=== PATIENT | female | born 1950 | race Caucasian/White ===

== ENCOUNTER → 2019-10-04 13:52 | Outpatient (CLI) | payer BC, SELFPAY ==
--- NOTE | ~2019-10-04 | DEXA_ITS ---
Bone Density Report Name: Kailee Lyn Age: 69 Sex: Female Ethnicity: White Date of : 1950 Indication: postmenopausal; screening for osteoporosis; hysterectomy; Referring Provider: PHYSICIAN NOT ON STAFF Study: Bone densitometry was performed. Exam Date: October 04, 2019 Accession number: [id number] Bone Density: Region BMD T-score Z-score Classification AP Spine (L1-L4) 0.858 -1.7 0.3 Osteopenia Femoral Neck (Left) 0.681 -1.5 0.2 Osteopenia Total Hip (Left) 0.917 -0.2 1.2 Normal Femoral Neck (Right) 0.743 -1.0 0.7 Normal Total Hip (Right) 0.893 -0.4 1.0 Normal Total Hip Mean 0.905 -0.3 1.1 Normal World Health Organization criteria for BMD impression classify patients as: Normal (T-score at or above -1.0), Osteopenia (T-score between -1.0 and -2.5), or Osteoporosis (T-score at or below -2.5). 10-year Fracture Risk(1): Major Osteoporotic Fracture 9.1% Hip Fracture 1.1% Reported Risk Factors: [place] (), Neck BMD=0.681, BMI=33.3 (1) FRAX(R) Version 3.08. Fracture probability calculated for an untreated patient. Fracture probability may be lower if the patient has received treatment. Clinical Information Provided by Patient: Has the following medical conditions: Hysterectomy Patient maximum height was 64 Menopause Age: 50 No regular weight bearing exercise Does not regularly consume dairy products Drinks caffeinated beverages Onset of menses at age 14 Number of children 4 Impression: The patient has low bone mass, based on the Total Spine T-score. The patient has an estimated ten-year risk of hip fracture of 1.1% and an estimated ten-year risk of major fracture of 9.1%, based on the WHO FRAX algorithm. Discussion: BONE DENSITY IS LOW AT ONE OR MORE SKELETAL SITES. This patient's lowest T-score is low at one or more skeletal sites. It meets the World Health Organization's (WHO) criteria for ?low bone mass? (T-score between -1.0 and -2.5). The patient's 10-year risk of fracture as calculated by FRAX is less than the threshold where pharmacological therapy is recommended by the National Osteoporosis Foundation (NOF). However, all treatment decisions require clinical judgment and consideration of individual patient factors, including patient preferences, comorbidities, previous drug use, risk factors not captured in the FRAX model (e.g., frailty, falls, vitamin D deficiency, increased bone turnover, interval significant decline in bone density) and possible under or overestimation of fracture risk by FRAX. The patient should follow a healthful lifestyle (good nutrition with adequate calcium and vitamin D, and appropriate weight-bearing exercise). Follow-Up: Consider repeating this study in 2 to 3 years to reassess this patient's status, or sooner if there is some new clinic
--- NOTE | ~2019-10-04 | MM_ITS ---
EXAMINATION: MM screening winter BI w charanjit HISTORY: Screening mammogram TECHNIQUE: Craniocaudal and mediolateral oblique 3-D tomosynthesis images were obtained and synthetic 2-D images were generated. CAD analysis was submitted and interpreted. COMPARISON: No prior mammogram is available for comparison at this institution. BREAST PARENCHYMAL COMPOSITION: There are scattered areas of fibroglandular density. FINDINGS: There is no evidence of suspicious mass, calcification, or architectural distortion to sugg est malignancy in either breast. There has been no suspicious interval change. IMPRESSION: 1. No mammographic evidence of malignancy. 2. Recommend routine screening mammography in one year. BI-RADS Category 1: Negative Reviewed, dictated and finalized at location [facility]. [facility]
== END ==
PROVIDERS: PCP Family Medicine Sports Medicine; Visit Provider Family Medicine Sports Medicine
DX: Z12.31 Encounter for screening mammogram for malignant neoplasm of breast (principal); Z13.820 Encounter for screening for osteoporosis; M85.88 Other specified disorders of bone density and structure, other site; M85.852 Other specified disorders of bone density and structure, left thigh
CPT/HCPCS: 77063; 77067; 77080

== ENCOUNTER → 2024-09-15 01:44 | Day surgery (SDC) | payer MEDICARE, SELFPAY ==
--- OUTSIDE RECORDS SUMMARY | 2024-09-15 01:47 | XMS_ITS | Clinical Summary ---
Author Organization [address] Address [address] [place] [address] Care Team Providers Care Director Of Business Operations Name Role Phone Alden Ramirez MD Primary Care Provider [phone] Allergies No known active allergies Medications olmesartan-hyd rochlorothiazi de (BENICAR HCT) 20-12.5 mg per tablet Take 1 tablet by mouth daily Active simvastatin (ZOCOR) 20 mg tablet Take 1 tablet (20 mg total) by mouth daily Active rivaroxaban (XARELTO) 20 mg tablet Take 1 tablet (20 mg total) by mouth daily with breakfast 90 tablet 2 07/16/20 24 Active sotaloL (BETAPACE) 80 mg tablet Take 1 tablet (80 mg total) by mouth 2 (two) times a day 60 tablet 2 08/23/19 25 025 Active metoprolol XL (TOPROL-XL) 50 mg extended release tablet TAKE 1 TABLET DAILY 90 tablet 3 07/21/20 24 025 Discontinued Active Problems Problem Noted Date Diagnosed Date Other thrombophilia 07/16/2024 Paroxysmal atrial fibrillation (CMS/HCC) 017 Morbid obesity with BMI of 40.0-44.9, adult 02/08 Encounters Date Type Department Care Team Description 08/23/2024 1:15 PM BATH DESIGN SALES CONSULTANT Office Visit [facility] [address] [facility] [address] [place] [address] Ld Max MD Paroxysmal atrial fibrillation (CMS/HCC) (HCC) (Primary Dx) 08/23/2024 Telephone [facility] [address] [facility] [address] [place] [phone] Ld Max MD 07/26/2024 9:15 AM BATH DESIGN SALES CONSULTANT Ancillary Procedure [facility] [address] [place] [address] [place] [phone] Atrial fibrillation, unspecified type (HCC) 07/16/2024 10:15 AM BATH DESIGN SALES CONSULTANT Office Visit [facility] [address] [place] [address] [place] [phone] Ld Max MD Paroxysmal atrial fibrillation (CMS/HCC) (HCC) (Primary Dx); Other thrombophilia (HCC); Need for lipid screening from Last 3 Months Medical History Medical History Date Comments Atrial fibrillation (CMS/HCC) (HCC) Family History Medical History Relation Name Comments Other Father 2 Alive and well; Other Mother 2 Alive and well; Relation Name Status Comments Father 1 Alive Father 2 Mother 1 Alive Mother 2 Social History Tobacco Use Types Packs/Day Years Used Date Smoking Tobacco: Former Cigarettes Q uit: 05/06/2021 Smokeless Tobacco: Never Tobacco Cessation:Counseling Given: Not Answered Alcohol Use Standard Drinks/Week Comments No 0 (1 standard drink = 0.6 oz pur e alcohol) Comments Unknown Sex and Gender Information Value Date Recorded Sex Assigned at Not on file Legal Sex Female 12:07 AM BATH DESIGN SALES CONSULTANT Gender Identity Not on file Sexual Orientation Not on file Obstetrics History Last Filed Vital Signs Vital Sign Reading Time Taken Comments Blood Pressure 104/68 08/23/2024 12:51 PM BATH DESIGN SALES CONSULTANT Pulse 79 08/23/2024 12:51 PM BATH DESIGN SALES CONSULTANT Temperature - - Respiratory Rate 12 02/25/2017 9:38 AM CDT Oxygen Saturation 95% 08/23/2024 12: 51 PM BATH DESIGN SALES CONSULTANT Inhaled Oxygen Concentration - - Weight 98.3 kg (216 lb 11.2 oz) 025 12:51 PM BATH DESIGN SALES CONSULTANT Height 162.6 cm (5' 4 ) 08/23/2024 12:5 1 PM BATH DESIGN SALES CONSULTANT Body Mass Index 37.2 08/23/2024 12:51 PM BATH DESIGN SALES CONSULTANT Plan of Treatment Health Maintenance Due Date Last Done Comments Breast Cancer Screening-Mammogram 1950 Colon Cancer Screening-Colonoscopy 1950 Depression Screening 1950 Fall Risk Assessment 1950 Hepatitis C Screening 1950 Osteoporosis Screening-Bone Density Scan 1950 DTaP/Tdap/Td Vaccine (1 - Tdap) 1962 Hepatitis B Screening 1969 Zoster Vaccine (1 of 2) 2001 Well Visit 65+ 2016 Influenza Vaccine (#1) 2024 9, 05/24/2018, 04/29/2017 Pneumococcal vaccine 65+ Completed 05/04/2019, 04/11 Procedures Procedure Name Priority Date/Time Associated Diagnosis Comments TRANSTHORACIC ECHO (TTE) COMPLETE W DOPPLER/CF WO CONTRAST Routine 07/26/2024 9:59 AM BATH DESIGN SALES CONSULTANT Atrial fibrillation, unspecified type (HCC) ELECTROCARDIOGRAM REPORT Routine 024 3:53 PM BATH DESIGN SALES CONSULTANT Paroxysmal atrial fibrillation (CMS/HCC) (HCC) POCT LIPID PANEL Routine 07/16/2024 10:0 9 AM BATH DESIGN SALES CONSULTANT Need for lipid screening from Last 3 Months Results * TRANSTHORACIC ECHO (TTE) COMPLETE W DOPPLER/CF WO CONTRAST (07/26/2024 9:59 AM BATH DESIGN SALES CONSULTANT) Anatomical Region Laterality Modality Ultrasound 07/26/2024 9:49 AM BATH DESIGN SALES CONSULTANT Narrative 07/26/2024 12:40 PM BATH DESIGN SALES CONSULTANT [facility] [address] [facility] [address] [address] [address] [facility] [address], [place] [address] P:[phone] P:[phone] Echocardiographic Report Patient Name: KAILEE CHAVES E : 1950 Study Date: 07/26/2024 9:49:58 AM Gender: F Tech: Location: [facility] Provider: LD MAX ?Height(Cm): 163 BSA: 2.11 Weight(Kg): 98.4 Heart Rate: 67 BP: 117 / 73 Quality: Good Order Provider: LD MAX ?? PROCEDURES: Echocardiographic Report: Transthoracic echocardiogram with complete 2D, M-Mode, and color Doppler examination. ?? INDICATIONS: I48.91 Unspecified atrial fibrillation. ?? MEASUREMENTS: 2D/MM ?Value ? Range ?Doppler ?Value ? Range Estimated EF ? 76 % ? MCKENNA Vmax ? 1.97 cm2 ?[ 2.00 - 4.00 ] LVIDd 2D ? 5.06 cm ? [ 3.80 - 5.20 ] ?AV Mean PG ? 6 mmHg LVIDs 2D ? 2.74 cm ? [ 2.20 - 3.50 ] ?AV Peak Fili ?1.69 m/s ?[ 1.00 - 1.70 ] LVPWd 2D ? 1.16 cm ? [ 0.60 - 0.90 ] ?AV Peak PG ? 11 mmHg IVSd 2D ?1.16 cm ? [ 0.60 - 0.90 ] ?AV VTI ? 35.67 cm LA Volume Index ?23 cc/m2 ?[ 16 - 34 ] ?LVOT Diam ?1.98 cm ? [ 1.70 - 2.10 ] LVOT Peak Fili ?1.08 m/s ?[ 0.70 - 1.10 ] LVOT VTI ? 24.61 cm MV E Peak Fili ?0.57 m/s ?[ 0.60 - 1.30 ] MV A Peak Fili ?0.78 m/s ?[ 1.00 - 1.20 ] MV Decel Time ?241 msec ?[ 104 - 258 ] Lateral E` ? 0.08 m/s ?[ 0.10 - 0.15 ] E` ? 0.06 m/s E/E` ? 7 2D/MM ?Value ? Range ?Doppler ?Value ? Range - ?? FINDINGS: Interpretation Site: Exam was interpreted at [facility]. Left Ventricle: Normal left ventricular systolic function. No focal wall motion abnormalities. Normal left ventricular size. Normal left ventricular wall thickness. Impaired diastolic relaxation Grade I. Ejection Fraction is visually estimated to be 76 %. Global Longitudinal Strain is -19 %. GLS is normal. Right Ventricle: Normal right ventricular size. Normal right ventricular systolic function. Left Atrium: There is mild enlargement of left atrium. Right Atrium: The right atrium is normal in size. Atrial Septum: Normal atrial septum. Mitral Valve: Normal appearance of the mitral valve. No mitral valve regurgitation is seen. There is no hemodynamically significant mitral stenosis by Doppler. Aortic Valve: Normal appearance of the aortic valve. No evidence of hemodynamically significant aortic stenosis by Doppler. Trileaflet aortic valve. No aortic regurgitation. Tricuspid Valve: Normal appearance of the tricuspid valve. No evidence of tricuspid regurgitation. Pulmonic Valve: Normal appearance of the pulmonic valve. Trivial regurgitation in the pulmonic valve. Pericardium: Normal pericardium with no significant pericardial effusion. Aorta: Sinus of Valsalva is normal. IVC: Normal size and normal respiratory collapse consistent with normal right atrial pressure (<5 mmHg). Pulmonary Artery: Normal pulmonary artery size. ?? CONCLUSIONS: Ejection Fraction is visually estimated to be 76 %. Global Longitudinal Strain is -19 %. Impaired relaxation, normal LV thickness. There is mild enlargement of left atrium. Normal appearance of the pulmonic valve. Trivial regurgitation in the pulmonic valve. Electronically Signed By: Dr. Omer Garcia [facility] 07/26/2024 12:40:03 PM BATH DESIGN SALES CONSULTANT 76 Procedure Note Omer Garcia MD - 07/26/2024 [facility] [address] [facility] [address] [address] [address] [facility] [address], [place] [address] P:[phone] P:[phone] Echocardiographic Report Patient Name: KAILEE CAHVES E : 1950 Study Date: 07/26/2024 9:49:58 AM Gender: F Tech: Location: [facility] Provider: LD MAX Height(Cm): 163 BSA: 2.11 Weight(Kg): 98.4 Heart Rate: 67 BP: 117 / 73 Quality: Good Order Provider: LD MAX PROCEDURES: Echocardiographic Report: Transthoracic echocardiogram with complete 2D, M-Mode, and color Dopplerexamination. INDICATIONS: I48.91 Unspecified atrial fibrillation. MEASUREMENTS: 2D/MM Value Range Doppler ValueRange Estimated EF 76 % MCKENNA Vmax 1.97cm2 [ 2.00 - 4.00 ] LVIDd 2D 5.06 cm [ 3.80 - 5.20 ] AV Mean PG 6mmHg LVIDs 2D 2.74 cm [ 2.20 - 3.50 ] AV Peak Fili 1.69m/s [ 1.00 - 1.70 ] LVPWd 2D 1.16 cm [ 0.60 - 0.90 ] AV Peak PG 11mmHg IVSd 2D 1.16 cm [ 0.60 - 0.90 ] AV VTI 35.67cm LA Volume Index 23 cc/m2 [ 16 - 34 ] LVOT Diam 1.98 cm[ 1.70 - 2.10 ] LVOT Peak Fili 1.08 m/s [ 0.70 - 1.10 ] LVOT VTI 24.61 cm MV E Peak Fili 0.57 m/s [ 0.60 - 1.30 ] MV A Peak Fili 0.78 m/s [ 1.00 - 1.20 ] MV Decel Time 241 msec [ 104 - 258 ] Lateral E` 0.08 m/s [ 0.10 - 0.15 ] E` 0.06 m/s E/E` 7 2D/MM Value Range Doppler ValueRange - FINDINGS: Interpretation Site: Exam was interpreted at [facility]. Left Ventricle: Normal left ventricular systolic function. No focal wall motionabnormalities. Normal left ventricular size. Normal left ventricular wall thickness. Impaireddiastolic relaxation Grade I. Ejection Fraction is visually estimated to be 76 %.Global Longitudinal Strain is -19 %. GLS is normal. Right Ventricle: Normal right ventricular size. Normal right ventricular systolicfunction. Left Atrium: There is mild enlargement of left atrium. Right Atrium: The right atrium is normal in size. Atrial Septum: Normal atrial septum. Mitral Valve: Normal appearance of the mitral valve. No mitral valve regurgitation isseen. There is no hemodynamically significant mitral stenosis by Doppler. Aortic Valve: Normal appearance of the aortic valve. No evidence of hemodynamicallysignificant aortic stenosis by Doppler. Trileaflet aortic valve. No aortic regurgitation. Tricuspid Valve: Normal appearance of the tricuspid valve. No evidence of tricuspidregurgitation. Pulmonic Valve: Normal appearance of the pulmonic valve. Trivial regurgitation in thepulmonic valve. Pericardium: Normal pericardium with no significant pericardial effusion. Aorta: Sinus of Valsalva is normal. IVC: Normal size and normal respiratory collapse consistent with normal rightatrial pressure (<5 mmHg). Pulmonary Artery: Normal pulmonary artery size. CONCLUSIONS: Ejection Fraction is visually estimated to be 76 %. Global LongitudinalStrain is -19 %. Impaired relaxation, normal LV thickness. There is mild enlargement of left atrium. Normal appearance of the pulmonic valve. Trivial regurgitation in thepulmonic valve. Electronically Signed By: Dr. Omer Garcia [facility] 07/26/2024 12:40:03 PM BATH DESIGN SALES CONSULTANT 76 Ld Max MD CV ECHO PROCEDURES Final Result * Electrocardiogram Report (07/16/2024 3:53 PM BATH DESIGN SALES CONSULTANT) Ld Max MD ECG ORDERABLES Final Re sult * POCT lipid panel (07/16/2024 10:09 AM BATH DESIGN SALES CONSULTANT) Cholesterol, POC 196 mg/dL Comment:GLU = 100 HDL, POC 65 mg/dL Triglycerides, POC 243 mg/dL LDL Cholesterol POC 82 mg/dL Chol/HDL Ratio, POC 1.3 Non-HDL Cholesterol, POC 131 mg/dL Cholesterol Total, POC 196 mg/dL Capillary blood 07/16/2024 1 0:09 AM BATH DESIGN SALES CONSULTANT Ld Max MD POINT OF CARE TEST ORDER BG Final Result from Last 3 Months Insurance AETNA MEDICARE [facility] MEDICARE Address: [facility] [address] [place] [address] AET MEDICARE Care Teams Director Of Business Operations Relationship Specialty Start Date End Date Alden Ramirez MD [address] [place] [address] PCP - General Family Medicine 07/15/23
--- OUTSIDE RECORDS SUMMARY | 2024-09-15 01:47 | XMS_ITS | Clinical Summary ---
Author Organization [facility] Address [address] [place] [id number] Care Team Providers Care Coal Sample Tester Name Role Phone Unavailable Primary Care Provider Unavailabl e Social History Tobacco Use Types Packs/Day Years Used Date Smoking Tobacco: Never Assessed Comments Unknown Sex and Gender Information Value Date Recorded Sex Assigned at Not on file Legal Sex Female 7:30 PM CDT Gender Identity Not on file Sexual Orientation Not on file Plan of Treatment Health Maintenance Due Date Last Done Comments Colorectal Cancer Screening Colonoscopy (10 Years) 1950 Hepatitis C 1969 DTaP, Tdap and Td Vaccines ( 1 - Tdap) 1970 Mammogram Screening 1991 Zoster Vaccines (1 of 2) 2001 Dexa Scan (General) 2016 Pneumococcal Vaccine: 65+ Ye ars (1 of 1 - PCV) 2016 COVID-19 Vaccine (2023-2 5 season) 2024 Influenza Adult (#1) 2024 RSV Immunization or 60+ Years (1 - 1-dose 75+ series) 2026 Meningococcal B Vaccine Aged Out No l onger eligible based on patient's age to complete this topic Meningococcal Vaccine Aged Out No carrie lokesh eligible based on patient's age to complete this topic RSV Immunizations Under 20 Months Aged Out No longer eligible based on patient's age to complete this topic
--- OUTSIDE RECORDS SUMMARY | 2024-09-15 01:47 | XMS_ITS | Encounter Summary ---
Author Organization [facility] Address [address] [facility] [address] [place] [address] Care Team Providers Care Staff Nurse Name Role Phone Alden Ramirez MD Primary Care Provider [phone] Alden Ramirez MD Primary Care Provider [phone] Papo May MD Primary Care Provider [phone] Alden Ramirez MD Primary Care Provider [phone] Encounter Details Date Type Department Care Team (Late st Contact Info) Description 09/09/2016 Orders Only [facility] ProviderAquilino MD [address] [place] [id number] Social History Tobacco Use Types Packs/Day Years Used Date Smoking Tobacco: Every Day Alcohol Use Standard Drinks/Week Comments No 0 (1 standard drink = 0.6 oz pur e alcohol) Comments Unknown Sex and Gender Information Value Date Recorded Sex Assigned at Not on file Legal Sex Female 12:07 AM CHARGE POSTER Gender Identity Not on file Sexual Orientation Not on file documented as of this encounter Plan of Treatment Not on file documented as of this encounter Procedures Procedure Name Priority Date/Time Associated Diagnosis Comments CARDIOLOGY REPORT 09/09/2016 documented in this encounter Results * CARDIOLOGY REPORT (09/09/2016) Anatomical Region Laterality Modality Other Narrative 09/09/2016 Ordered by an unspecified provider. Historical Provider [facility] COBOS Final Result documented in this encounter Visit Diagnoses Not on filedocumented in this encounter Care Teams Staff Nurse Relationship Specialty Start Date End Date Alden Ramirez MD [address] [place] [address] PCP - General 11/08/16 03/13/20 Alden Ramirez MD [address] [place] [address] PCP - General 08/22/16 11/07/16 Papo May MD [address] [place] [address] PCP - General Family Medicine 03/14/20 07/14/23 Alden Ramirez MD [address] [place] [address] PCP - General Family Medicine 07/15/23 documented as of this encounter
--- OUTSIDE RECORDS SUMMARY | 2024-09-15 01:47 | XMS_ITS | Patient Health Summary ---
Author Organization [facility] Address [address] [place] [address] Care Team Providers Care Scuba Diving Instructor Name Role Phone Alden Ramirez MD Primary Care Provider [phone] Note from [facility],non-owned Affiliates and Associated Physician Practices is amultiple site organization consisting of ambulatory clinics and hospital sitesin [place], [place], [place] and [place]. This disclosure is being madepursuant to the Care Everywhere program and may not contain all information available regarding this patient. Last updated 18.[facility] Allergies No known active allergies Medications * Be aware that medications may not be up to date on this document. Alwaysverify current medications with the patient. * olmesartan-hydroCHLOROthiazide (BENICAR HCT) 20-12.5 MG tablet Take 1 (one) tablet by mouth once daily * metoprolol succinate XL 24hr (TOPROL XL) TABS Take by mouth once daily * aspirin (ASPIRIN) 325 MG tablet Take 1 (one) tablet by mouth once daily * simvastatin (Zocor) 20 MG tablet(Started 08/13/2023) * estradiol (ESTRACE VAGINAL) 0.1 MG/GM vaginal cream(Started 11/21/2023) Apply 1 gram vaginally at bedtime for 21 days, then transition to twice weekly use. Reasons: Vulvovaginal Atrophy 5 refills by 11/20/2024 * nitrofurantoin monohyd macro crystals (Macrobid) 100 MG capsule(Started 11/21/2023) Take 1 (one) capsule by mouth daily with food Active Problems No known active problems Social History Tobacco Use Types Packs/Day Years Used Date Smoking Tobacco: Former Cigarettes Q uit: 2020 Alcohol Use Standard Drinks/Week Comments Yes 0 (1 standard drink = 0.6 oz pur e alcohol) Sex and Gender Information Value Date Recorded Sex Assigned at Not on file Gender Identity Not on file Sexual Orientation Not on file Last Filed Vital Signs Vital Sign Reading Time Taken Comments Blood Pressure 144/86 11/21/2023 11:15 AM CDT Pulse 62 04/21/2016 3:30 PM CDT Temperature 36.7 ??C (98 ??F) 10/18/2015 10:45 AM RECOVERY RN Respiratory Rate 18 04/21/2016 3:30 PM CDT Oxygen Saturation 96% 04/21/2016 3:30 PM CDT Inhaled Oxygen Concentration - - Weight 100.7 kg (222 lb) 11/21/2023 11:15 AM CDT Height 160 cm (5' 3 ) 11/21/2023 11:15 AM CDT Body Mass Index 39.33 11/21/2023 11:15 AM CDT Procedures * DERMATOPATHOLOGY(Performed 10/16/2023) * URINALYSIS AUTO - POINT OF CARE (AMB) STL(Performed 04/21/2016) Performed for Urinary tract infection with hematuria, site unspecified * XR CHEST 2VW(Performed 09/25/2012) Results * DERMATOPATHOLOGY (10/16/2023 11:05 AM RECOVERY RN) Case Report Dermatopathology Report ? Case: [id number] ? Authorizing Provider: ??Joann Nguyen MD ?Collected: ? 10/16/2023 11:05 AM ? Ordering Location: ? [facility] - ??Received: ?10/17/2023 01:14 PM ? DermPath Lab ? Pathologist: ? Lucia Cuenca MD ? Specimen: ?Skin, right neck ? 4 1:19 PM T DERMATOPATHOLOGY LABORATORY Final Diagnosis Specimen A. SKIN, right neck: SEBORRHEIC KERATOSIS, INFLAMED (L82.0) 4 1:19 PM T DERMATOPATHOLOGY LABORATORY Clinical History R/O SCC, SK Non-Healing Brown Papule 4 1:19 PM CDT DERMATOPATHOLOGY LABORATORY Gross Description Specimen A: Received is one formalin filled container labeled with the patient's name and designated right neck. The specimen consists of a shave biopsy measuring [id number] mm. Jar 0. 4 1:19 PM T DERMATOPATHOLOGY LABORATORY Microscopic Description Specimen A. SKIN, right neck: There is hyperkeratosis, parakeratosis, papillomatosis, and acanthosis of the epidermis. There is a lymphohistiocytic infiltrate within the papillary dermis that is focally lichenoid. 4 1:19 PM T DERMATOPATHOLOGY LABORATORY Disclaimer An external and internal positive and negative controls are appropriate for the histochemical, immunohistochemical and immunofluorescence stain(s) in this case (if any), except where stated explicitly. The performance characteristics of the stain(s) cited in this report were developed and its performance characteristic determined by the Dermatopathology Laboratory at [facility], directed by Dr. Jason Pierre. These tests need not be, and therefore are not, approved by the [place] Food and Drug Administration. The tests are used for clinical purposes. Billing Codes Specimen Charges Stain Charges 55115 1 4 1:19 PM CDT DERMATOPATHOLOGY LABORATORY Embedded Images 4 1:19 PM CDT DERMATOPATHOLOGY LABORATORY Pathology/Cytolo gy TISSUE SPECIMEN FROM SKIN / Unknown 10/16/2023 11:05 AM RECOVERY RN 10/17/2023 1:14 PM RECOVERY RN Joann Nguyen MD LAB - PATHOLOGY/CYTO LOGY ORDERABLES DERMATOPATHOLOGY LABORATORY [facility] - Department of Dermatology [address], [address] [phone] * URINALYSIS AUTO - POINT OF CARE (AMB) STL (04/21/2016) Clarity UA POCT clear Color UA POCT yellow Leukocyte UA 70+ Negative Nitrite UA POCT negative Negative Urobilinogen UA 0.2 0.1 - 1.0 Protein UA POCT 15 Negative pH UA 6.0 5.0 - 8.0 pH units Blood UA negative Negative Specific [place] UA POCT 1.030 1.002 - 1.030 Ketone UA 5+ Negative Bilirubin UA POCT negative Negative Glucose UA negative Negative Expiration Date [id number] Lot # [id number] QC Verified Yes Yes URINE / Unknown 04/21/2016 Carley Goldstein DIRECTOR [employer] DESIGNER LAB - POINT O F CARE ORDERABLES * XR CHEST 2VW (09/25/2012 10:49 AM RECOVERY RN) Anatomical Region Laterality Modality Chest Other Impressions 09/25/2012 2:47 PM RECOVERY RN Impression: No evidence of active tuberculosis. Report dictated by Alfredito Kevin M.D. (resident). I, Dr. KVNG BLANCAS M.D. have personally reviewed and interpreted this examination/study. This report was electronically signed by KVNG BLANCAS M.D. ??on 09/25/2012 2:47 PM . Narrative 09/25/2012 2:47 PM RECOVERY RN Exam: ??Chest, PA and lateral History: ??ppd positive Comparison: None available. Findings: The lungs are clear with no focal opacity. There is no evidence of active tuberculosis. There is no pleural effusion or pneumothorax. The cardiac and mediastinal silhouettes are normal. The osseous structures are intact. Procedure Note Kvng Blancas MD - 11/09/2017 Exam: Chest, PA and lateral History: ppd positive Comparison: None available. Findings: The lungs are clear with no focal opacity. There is no evidenceof active tuberculosis. There is no pleural effusion or pneumothorax. Thecardiac and mediastinal silhouettes are normal. The osseous structures areintact. IMPRESSION Impression: No evidence of active tuberculosis. Report dictated by Alfredito Kevin M.D. (resident). I, Dr. KVNG BLANCAS M.D. have personally reviewed and interpreted thisexamination/study. This report was electronically signed by KVNG BLANCAS M.D. on09/25/2012 2:47 PM . Bassem Santacruz MD DIAGNOSTIC [facility] ORDERABLES Care Teams Scuba Diving Instructor Relationship Specialty Start Date End Date Alden Ramirez MD [address] [place] [address] PCP - General Family Medicine 08/19/23
--- OUTSIDE RECORDS SUMMARY | 2024-09-15 01:47 | XMS_ITS | Encounter Summary ---
Author Organization [facility] Address [address] [place] [address] Care Team Providers Care Test Administrator Name Role Phone Alden Ramirez MD Primary Care Provider [phone] Alden Ramirez MD Primary Care Provider [phone] Papo May MD Primary Care Provider [phone] Alden Ramirez MD Primary Care Provider [phone] Encounter Details Date Type Department Care Team (Late st Contact Info) Description 09/11/2016 Orders Only [facility] ProviderAquilino MD [address] [place] [address] Social History Tobacco Use Types Packs/Day Years Used Date Smoking Tobacco: Every Day Alcohol Use Standard Drinks/Week Comments No 0 (1 standard drink = 0.6 oz pur e alcohol) Comments Unknown Sex and Gender Information Value Date Recorded Sex Assigned at Not on file Legal Sex Female 12:07 AM CAREER SERVICES OFFICER Gender Identity Not on file Sexual Orientation Not on file documented as of this encounter Plan of Treatment Not on file documented as of this encounter Procedures Procedure Name Priority Date/Time Associated Diagnosis Comments CARDIOLOGY REPORT 09/11/2016 documented in this encounter Results * CARDIOLOGY REPORT (09/11/2016) Anatomical Region Laterality Modality Other Narrative 09/11/2016 Ordered by an unspecified provider. Historical Provider CV CARDIAC SERVICES ARIANA COBOS Final Result documented in this encounter Visit Diagnoses Not on filedocumented in this encounter Care Teams Test Administrator Relationship Specialty Start Date End Date Alden Ramirez MD [address] [place] [address] PCP - General 11/08/16 03/13/20 Alden Ramirez MD [address] [place] [address] PCP - General 08/22/16 11/07/16 Papo May MD [address] [place] [address] PCP - General Family Medicine 03/14/20 07/14/23 Alden Ramirez MD [address] [place] [address] PCP - General Family Medicine 07/15/23 documented as of this encounter
--- OUTSIDE RECORDS SUMMARY | 2024-09-15 01:47 | XMS_ITS | Referral Summary ---
Author Organization [facility] [address] Address [address] [place] [phone] Care Team Providers Care Dialysis Registered Nurse Name Role Phone Alden Ramirez MD Primary Care Provider [phone] Encounters Date Type Department Care Team Description 08/23/2024 Telephone [facility] Cardiology [address] [place] [address] [place] [phone] Ld Max MD 08/23/2024 1:15 PM ZONE MANAGER Office Visit [facility] Cardiology [address] [place] [address] [place] [phone] Ld Max MD Paroxysmal atrial fibrillation (CMS/HCC) (HCC) (Primary Dx) 07/26/2024 9:15 AM ZONE MANAGER Ancillary Procedure [facility] Cardiology [address] [place] [address] [place] [phone] Atrial fibrillation, unspecified type (HCC) 07/16/2024 10:15 AM ZONE MANAGER Office Visit [facility] Cardiology [address] [place] [address] [place] [phone] Ld Max MD Paroxysmal atrial fibrillation (CMS/HCC) (HCC) (Primary Dx); Other thrombophilia (HCC); Need for lipid screening from Last 3 Months Allergies No known active allergies Medications olmesartan-hyd [...] obesity with BMI of 40.0-44.9, adult 02/08 Social History Tobacco Use Types Packs/Day Years Used Date Smoking Tobacco: Former Cigarettes Q uit: 05/06/2021 Smokeless Tobacco: Never Tobacco Cessation:Counseling Given: Not Answered Alcohol Use Standard Drinks/Week Comments No 0 (1 standard drink = 0.6 oz pur e alcohol) Comments Unknown Sex and Gender Information Value Date Recorded Sex Assigned at Not on file Legal Sex Female 12:07 AM ZONE MANAGER Gender Identity Not on file Sexual Orientation Not on file Last Filed Vital Signs Vital Sign Reading Time Taken Comments Blood Pressure 104/68 08/23/2024 12:51 PM ZONE MANAGER Pulse 79 08/23/2024 12:51 PM ZONE MANAGER Temperature - - Respiratory Rate 02/25/2017 9:38 AM CDT Oxygen Saturation 95% 08/23/2024 12: 51 PM ZONE MANAGER Inhaled Oxygen Concentration - - Weight 98.3 kg (216 lb 11.2 oz) 025 12:51 PM ZONE MANAGER Height 162.6 cm (5' 4 ) 08/23/2024 12:5 1 PM ZONE MANAGER Body Mass Index 37.2 08/23/2024 12:51 PM ZONE MANAGER Plan of Treatment Not on file Procedures Procedure Name Priority Date/Time Associated Diagnosis Comments TRANSTHORACIC ECHO (TTE) COMPLETE W DOPPLER/CF WO CONTRAST Routine 07/26/2024 9:59 AM ZONE MANAGER Atrial fibrillation, unspecified type (HCC) ELECTROCARDIOGRAM REPORT Routine 024 3:53 PM ZONE MANAGER Paroxysmal atrial fibrillation (CMS/HCC) (HCC) POCT LIPID PANEL Routine 07/16/2024 10:0 9 AM ZONE MANAGER Need for lipid screening from Last 3 Months Results * TRANSTHORACIC ECHO (TTE) COMPLETE W DOPPLER/CF WO CONTRAST (07/26/2024 9:59 AM ZONE MANAGER) Anatomical Region Laterality Modality Ultrasound 07/26/2024 9:49 AM ZONE MANAGER Narrative 07/26/2024 12:40 PM ZONE MANAGER [facility] Cardiology [address], [place] [address] [address], [place] [address] P:[phone] P:[phone] Echocardiographic Report Patient Name: KAILEE CHAVES E : 1950 Study Date: 07/26/2024 9:49:58 AM Gender: F Tech: Location: [facility] Provider: LD MAX ?Height(Cm): 163 BSA: [...] FINDINGS: Interpretation Site: Exam was interpreted at [facility]. Left Ventricle: Normal left ventricular systolic [...] valve. Electronically Signed By: Dr. Omer Garcia [facility] 07/26/2024 12:40:03 PM ZONE MANAGER 76 Procedure Note Omer Garcia MD - 07/26/2024 [facility] Cardiology [address], [place] [address] [address], [place] [address] P:[phone] P:[phone] Echocardiographic Report Patient Name: KAILEE CHAVES E : 1950 Study Date: 07/26/2024 9:49:58 AM Gender: F Tech: LISSETH Location: [facility] Provider: LD MAX Height(Cm): 163 BSA: [...] FINDINGS: Interpretation Site: Exam was interpreted at [facility]. Left Ventricle: Normal left ventricular systolic [...] valve. Electronically Signed By: Dr. Omer Garcia [facility] 07/26/2024 12:40:03 PM ZONE MANAGER 76 us Ld Max MD CV ECHO PROCEDURES Final Result * Electrocardiogram Report (07/16/2024 3:53 PM ZONE MANAGER) Ld Max MD ECG ORDERABLES Final Re sult * POCT lipid panel (07/16/2024 10:09 AM ZONE MANAGER) Cholesterol, POC 196 mg/dL Comment:GLU = 100 HDL, POC 65 mg/dL Triglycerides, POC 243 mg/dL LDL Cholesterol POC 82 mg/dL Chol/HDL Ratio, POC 1.3 Non-HDL Cholesterol, POC 131 mg/dL Cholesterol Total, POC 196 mg/dL Capillary blood 07/16/2024 1 0:09 AM ZONE MANAGER Ld Max MD POINT OF CARE TEST ORDER BG Final Result from Last 3 Months Insurance * Guarantor: Kailee Chaves Account Type Relation to Patient Date of Phone Billing Address Personal/Family Self [phone] AETNA MEDICARE AETNA MEDICARE Care Teams Dialysis Registered Nurse Relationship Specialty Start Date End Date Alden Ramirez MD [address] [place] [address] PCP - General Family Medicine 07/15/23
--- OUTSIDE RECORDS SUMMARY | 2024-09-15 01:48 | XMS_ITS | Referral Summary ---
Author Organization [facility] Address [address] [place] [address] Care Team Providers Care Pole Peeling Machine Operator Name Role Phone Alden Ramirez MD Primary Care Provider [phone] Source Comments [facility],non-owned Affiliates and Associated Physician Practices is amultiple site organization consisting of ambulatory clinics and hospital sitesin [place], [place], [place] and [place]. This disclosure is being madepursuant to the Care Everywhere program and may not contain all information available regarding this patient. Last updated 18.[facility] Allergies No known active allergies Medications * Be aware that medications may not be up to date on this document. Alwaysverify current medications with the patient. Medication Sig Dispensed Refills Start Date End Date Status olmesartan-hydroCH LOROthiazide (BENICAR HCT) 20-12.5 MG tablet Take 1 (one) tablet by mouth once daily Active metoprolol succinate XL 24hr (TOPROL XL) TABS Take by mouth once daily Active aspirin (ASPIRIN) 325 MG tablet Take 1 (one) tablet by mouth once daily Active simvastatin (Zocor) 20 MG tablet 08/13/2023 Active estradiol (ESTRACE VAGINAL) 0.1 MG/GM vaginal creamIndications:V ulvovaginal Atrophy Apply 1 gram vaginally at bedtime for 21 days, then transition to twice weekly use. Reasons: Vulvovaginal Atrophy 42.5 g 5 11/21/2023 Active nitrofurantoin monohyd macro crystals (Macrobid) 100 MG capsuleIndications :Recurrent UTI Take 1 (one) capsule by mouth daily with food 90 capsule 11/21/2023 Active Active Problems No known active problems Social [...] 36.7 ??C (98 ??F) 10/18/2015 10:45 AM ADMINISTRATIVE OFFICE MANAGER Respiratory Rate 18 04/21/2016 3:30 PM CDT Oxygen Saturation 96% 04/21/2016 3:30 PM CDT Inhaled Oxygen Concentration - - Weight 100.7 kg (222 lb) 11/21/2023 11:15 AM CDT Height 160 cm (5' 3 ) 11/21/2023 11:15 AM CDT Body Mass Index 39.33 11/21/2023 11:15 AM CDT Plan of Treatment Not on file Advance Directives Documents on File Type Date Recorded Patient Library Sales Consultant Expl anation Adv Directive/Living Will/POA 05/06/2016 5:55 PM Care Teams Pole Peeling Machine Operator Relationship Specialty Start Date End Date Alden Ramirez MD [address] [facility] [place] [address] PCP - General Family Medicine 08/19/23
--- OUTSIDE RECORDS SUMMARY | 2024-09-15 01:48 | XMS_ITS | Clinical Summary ---
Author Organization [facility] Address [address] [place] [address] Care Team Providers Care Program Specialist Name Role Phone Alden Ramirez MD Primary Care Provider [phone] Source Comments [facility],non-owned Affiliates and Associated Physician Practices is amultiple site organization consisting of ambulatory clinics and hospital sitesin [place], [place], [place] and [place]. This disclosure is being madepursuant to the Care Everywhere program and may not contain all information available regarding this patient. Last updated 18.[facility] Allergies No known active allergies Medications * [...] Active Active Problems No known active problems Family History Medical History Relation Name Comments Hypertension Mother Relation Name Status Comments Mother Social History Tobacco Use Types Packs/Day Years [...] 36.7 ??C (98 ??F) 10/18/2015 10:45 AM LEAD APPLICATIONS DEVELOPER Respiratory Rate 18 04/21/2016 3:30 PM CDT Oxygen Saturation 96% 04/21/2016 3:30 PM CDT Inhaled Oxygen Concentration - - Weight 100.7 kg (222 lb) 11/21/2023 11:15 AM CDT Height 160 cm (5' 3 ) 11/21/2023 11:15 AM CDT Body Mass Index 39.33 11/21/2023 11:15 AM CDT Plan of Treatment Health Maintenance Due Date Last Done Comments BONE DENSITY TESTING 1950 COLOGUARD (AGES 45-75) - COLON CA SCREENING 1950 COLON MONITORING 1950 COLONOSCOPY - COLON CA SCREENING 1950 CT COLONOGRAPHY - COLON CA SCREENING 1950 Colorectal Cancer Screening 1950 FIT - COLON CA SCREENING 1950 FLEX SIG - COLON CA SCREENING 1950 MAMMOGRAM 1950 HEPATITIS C SCREENING 06/13/1969 DTAP/TDAP/TD VACCINES (1 - Tdap) 1970 PNEUMOCOCCAL VACCINE 50+ (1 of 1 - PCV) 2001 ZOSTER VACCINE (1 of 2) 2001 COVID-19 VACCINE ( season) 2024 05/19/2023, 05/14/2022, 11/15/2021, Additional history exists INFLUENZA VACCINE (#1) 2024 , 05/14/2022, 05/07/2021, Additional history exists DEPRESSION SCREENING 08/11/2024 MEDICARE AWV ? CALENDAR YEAR 2024 Respiratory Syncytial Virus (RSV) Vaccine Pt: or over 60 yrs (1 - 1-dose 75+ series) 2026 HEPATITIS B VACCINE Aged Out No longe r eligible based on patient's age to complete this topic HIB VACCINE Aged Out No longer eligi ble based on patient's age to complete this topic HPV VACCINE Aged Out No longer eligi ble based on patient's age to complete this topic MENINGOCOCCAL (Group B) VACCINE Aged Out No longer eligible based on patient's age to complete this topic MENINGOCOCCAL VACCINE Aged Out No carrie lokesh eligible based on patient's age to complete this topic Advance Directives Documents on File Type Date Recorded Patient Lepidopterist Expl anation Adv Directive/Living Will/POA 05/06/2016 5:55 PM Care Teams Program Specialist Relationship Specialty Start Date End Date Alden Ramirez MD [address] [place] [id number] PCP - General Family Medicine 08/19/23
--- OUTSIDE RECORDS SUMMARY | 2024-09-15 01:48 | XMS_ITS | Encounter Summary ---
Author Organization [facility] Address [address] [place] [address] Care Team Providers Care Mixed Animal Veterinarian Name Role Phone Alden Ramirez MD Primary Care Provider [phone] Encounter Details Date Type Department Care Team (Late st Contact Info) Description 10/16/2023 Lab Requisition [facility] - DermPath Lab [address] [place] [address] Joann Nguyen MD [address] [facility] [address] [place] [address] Social History Tobacco Use Types Packs/Day Years [...] Procedure Name Priority Date/Time Associated Diagnosis Comments DERMATOPATHOLOGY Routine 10/16/2023 11:0 5 AM CAREER RESOURCE SPECIALIST documented in this encounter Results * DERMATOPATHOLOGY (10/16/2023 11:05 AM CAREER RESOURCE SPECIALIST) Case Report Dermatopathology Report ? Case: [id number] ? Authorizing Provider: ??Joann Nguyen MD ?Collected: ? 10/16/2023 11:05 AM ? Ordering Location: ? [facility] - ??Received: ?10/17/2023 01:14 PM ? DermPath Lab ? Pathologist: ? Lucia Cuenca MD ? Specimen: ?Skin, right neck ? 4 1:19 PM CDT DERMATOPATHOLOGY LABORATORY Final Diagnosis Specimen A. SKIN, right neck: SEBORRHEIC KERATOSIS, INFLAMED (L82.0) 4 1:19 PM CDT DERMATOPATHOLOGY LABORATORY Clinical History R/O SCC, SK Non-Healing Brown Papule 4 1:19 PM CDT DERMATOPATHOLOGY LABORATORY Gross Description Specimen A: Received is one formalin filled container labeled with the patient's name and designated right neck. The specimen consists of a shave biopsy measuring [id number] mm. Jar 0. 4 1:19 PM CDT DERMATOPATHOLOGY LABORATORY Microscopic Description Specimen A. SKIN, right neck: There is hyperkeratosis, parakeratosis, papillomatosis, and acanthosis of the epidermis. There is a lymphohistiocytic infiltrate within the papillary dermis that is focally lichenoid. 4 1:19 PM CDT DERMATOPATHOLOGY LABORATORY Disclaimer An external and internal positive and negative controls are appropriate for the histochemical, immunohistochemical and immunofluorescence stain(s) in this case (if any), except where stated explicitly. The performance characteristics of the stain(s) cited in this report were developed and its performance characteristic determined by the Dermatopathology Laboratory at [facility], directed by Dr. Jason Pierre. These tests need not be, and therefore are not, approved by the [place] Food and Drug Administration. The tests are used for clinical purposes. Billing Codes Specimen Charges Stain Charges 33711 1 4 1:19 PM CDT DERMATOPATHOLOGY LABORATORY Embedded Images 4 1:19 PM CDT DERMATOPATHOLOGY LABORATORY Pathology/Cytolo gy TISSUE SPECIMEN FROM SKIN / Unknown 10/16/2023 11:05 AM CAREER RESOURCE SPECIALIST 10/17/2023 1:14 PM CAREER RESOURCE SPECIALIST Joann Nguyen MD LAB - PATHOLOGY/CYTO LOGY ORDERABLES DERMATOPATHOLOGY LABORATORY [facility] - Department of Dermatology [address] [phone] documented in this encounter Visit Diagnoses Not on filedocumented in this encounter Care Teams Mixed Animal Veterinarian Relationship Specialty Start Date End Date Alden Ramirez MD [address] [place] [address] PCP - General Family Medicine 08/19/23 documented as of this encounter
--- NOTE | 2024-09-15 07:45 | ECG_ITS ---
Test Date: 2024-09-15 07:31:37 Measurements Intervals [place] Rate: 74 P: -12 [place]: 174 QRS: -3 QRSD: 112 T: 47 QT: 425 QTc: 473 Interpretive Statements SINUS RHYTHM INTRAVENTRICULAR CONDUCTION DELAY DELAYED PRECORDIAL R/S TRANSITION BORDERLINE ST-T WAVE ABNORMALITY- ANTERIOR LEADS BASELINE ARTIFACT- V3-V6 BORDERLINE ECG No previous ECG available for comparison Electronically Signed On 09-15-2024 07:47:16 L D RN by Ad Garcia D.O.
--- NOTE | 2024-09-15 08:23 | SUR.OPER ---
pt found in sr. dr bergman spoke with pt. pt sent home follow up in already scheduled november appointment. pt denied any help determining when appointment was in november.
== END ==
PROVIDERS: PCP Family Medicine; Visit Provider Specialist
PROC: 5A2204Z Restoration of Cardiac Rhythm, Single (ICD-10-PCS; principal; 2024-09-15 09:00)
DX: I48.0 Paroxysmal atrial fibrillation (principal); Z79.01 Long term (current) use of anticoagulants; Z53.8 Procedure and treatment not carried out for other reasons
CPT/HCPCS: 99211; G0463